=== PATIENT | female | born 2000 | race Caucasian/White ===

== ENCOUNTER 2023-12-16 17:58 | Emergency (ER) | payer OTHER ==
[~2023-12-16] VITALS: Ht 170.2 cm; Wt 59.0 kg
[2023-12-16 18:45] VITALS: BP 105/80; TEMP 98.3; O2SAT 99
[2023-12-16] MEDS ORDERED: IBUP-1955 PO (19:27)
[2023-12-16] MEDS ORDERED: ACET-2605 PO (19:27)
[2023-12-16] MEDS ORDERED: ACETAMINOPHEN ES 500 MG TABLET ONE (19:32)
[2023-12-16] MEDS: ACETAMINOPHEN ES 500 MG TABLET PO ONE (19:34)
== END 2023-12-16 20:27 | disposition home or self-care (01) ==
LOC: ER 17:58
DX: R51.9 Headache, unspecified (principal); V49.3XXA Car occupant (driver) (passenger) injured in unspecified nontraffic accident, initial encounter; Y93.89 Activity, other specified; Y92.89 Other specified places as the place of occurrence of the external cause; Y99.8 Other external cause status